=== PATIENT | male | born 1975 | race Caucasian/White ===

== ENCOUNTER → 2024-06-09 | Outpatient (CLI) | payer OTHER, BC, SELFPAY ==
--- NOTE | 2024-06-09 12:41 | XR_ITS ---
Examination: Thoracic spine 3 views Technique one AP lateral coned lateral upper dorsal spine 3 views Exam date and time: June 09, 2024 1343 hours INDICATIONS: Upper back pain beginning one week ago. FINDINGS: Midthoracic dextroscoliosis 6 degrees Moderate osteopenia No thoracic fracture Mild diffuse thoracic degenerative disc disease IMPRESSION: Mild diffuse thoracic degenerative disc disease
--- NOTE | 2024-06-09 12:41 | XR_ITS ---
Examination: Ribs, left, with PA chest, 5 views Technique: Chest PA, RIBS AP, RPO, LPO, AP coned lower ribs 5 views Exam date and time: June 09, 2024 1337 hours INDICATIONS: Left-sided rib pain this week Findings: Normal heart size Lungs are clear. No pneumothorax. No acute rib fractures IMPRESSION: No pneumonia or pulmonary edema No acute rib fractures
== END | disposition home or self-care (01) ==
PROVIDERS: PCP Registered Nurse; Referring Provider Registered Nurse; Visit Provider Registered Nurse
DX: M51.34 Other intervertebral disc degeneration, thoracic region (principal); R07.82 Intercostal pain
CPT/HCPCS: 71101; 72070